=== PATIENT | female | born 1995 ===

== ENCOUNTER 2018-06-16 10:19 | Inpatient (IN) ==
[2018-06-16] MEDS ORDERED: ONDANSETRON 4 MG/2 ML VIAL IV PRN ×2 (10:43→21:37)
[2018-06-16] MEDS ORDERED: MEPERIDINE 50 MG/1 ML VIAL IV PRN (10:43)
[2018-06-16] MEDS ORDERED: LACTATED RINGERS 1,000 ML IV SCH ×2 (11:00→13:30)
[2018-06-16] MEDS ORDERED: OXYTOCIN/LR 20 UNIT/1,000 ML BAG IV SCH (11:00)
[2018-06-16 11:08] LABS: Basophils % 0.3 % (0.0-0.8); Eosinophils # 0.1 10*3/uL (0.0-0.87); Eosinophils % 0.9 % (0.00-10.9); Hematocrit 34.3 VOL% (35.7-47.0); Hemoglobin 11.1 GM/DL (12.0-16.0); Immature Granulocytes % 0.9 %; Immature Granulocytes Absolute 0.07 #; Lymphocytes # 1.5 10*3/uL (1.4-4.0); Lymphocytes % 19.4 % (21.3-54.2); Mean Corpuscular HGB Conc 32.4 GM/DL (32-36); Mean Corpuscular Hemoglobin 27 PG (27-34); Mean Corpuscular Volume 83.1 FL (87-102); Mean Platelet Volume 10.8 FL (9.6-12.0); Monocytes # 0.6 10*3/uL (0.11-0.8); Monocytes % 7.7 % (1.7-12.7); Neutrophils # 5.5 10*3/uL (1.4-7.4); Neutrophils % 70.8 % (38.7-73.9); Platelet Count 193 T/CUMM (130-400); Red Blood Count 4.13 MC/CUMM (3.8-5.5); Red Cell Distribution Width 14.3 % (9.3-17.3); White Blood Count 7.7 T/CUMM (4-12)
[2018-06-16] MEDS ORDERED: FAMOTIDINE 20 MG/2 ML VIAL IV ONE (13:20)
[2018-06-16] MEDS ORDERED: CITRIC ACID/SODIUM CITRATE 30 ML UDCUP PO ONE (13:20)
[2018-06-16] MEDS ORDERED: ePHEDrine 50 MG/ML AMP IV PRN (13:20)
[2018-06-16] MEDS ORDERED: fentaNYL 2 MCG/ROPIV 0.2% EPID 150 ML EPIDURAL SCH (13:30)
[2018-06-16] MEDS ORDERED: fentaNYL 2 MCG/ROPIV 0.2% EPID 150 ML EPIDURAL ONE (13:36)
[2018-06-16 16:13] LABS: Apearance,Urine CLEAR (Clear); Bacteria,Urine Occasional /HPF (Few); Bilirubin,Urine Negative (Negative); Blood, Urine Negative (Negative); Glucose,Urine (UA) Negative (Negative); Ketones,Urine Negative (Negative); Mucus,Urine Occasional /LPF (Occasional); Nitrite,Urine Negative (Negative); Protein,Urine Negative; Squamous Epithelial Cell,Urine Occasional /HPF (0-10); Urine Color Yellow (Yellow); Urine Specific Gravity 1.011 (1.001-1.035); Urine Urobilinogen < 2.0 EU/DL (0.2-1.0); WBC,Urine 1 /HPF (0-6)
[2018-06-16] MEDS ORDERED: BENZOCAINE 20%/MENTHOL 0.5% SPRAY 56 GM CAN TOP PRN (21:37)
[2018-06-16] MEDS ORDERED: BISACODYL 10 MG SUPP RECTAL PRN (21:37)
[2018-06-16] MEDS ORDERED: MEASLES/MUMPS/RUBELLA VACCINE 0.5 ML VIAL SUBCUT ONE (21:37)
[2018-06-16] MEDS ORDERED: LANOLIN 50% CREAM 0.3 OZ TUBE TOP PRN (21:37)
[2018-06-16] MEDS ORDERED: ACETAMINOPHEN 325 MG TABLET PO PRN (21:37)
[2018-06-16] MEDS ORDERED: RHO(D) IMMUNE GLOBULIN 300 MCG SYRINGE IM ONE (21:37)
[2018-06-16] MEDS ORDERED: WITCH HAZEL PADS 100/JAR TOP PRN (21:37)
[2018-06-16] MEDS ORDERED: HYDROCORTISONE 2.5% RECTAL CREAM 30 GM TUBE TOP PRN (21:37)
[2018-06-16] MEDS ORDERED: DIPH/TET/ACEL PERT BOOSTER VACCINE 0.5 ML VIAL IM ONE (21:37)
[2018-06-16] MEDS ORDERED: OXYTOCIN/LR 20 UNIT/1,000 ML BAG IV ONE (21:37)
[2018-06-16] MEDS: oxyCODONE/ACETAMINOPHEN 5-325 MG TABLET PO PRN (23:30)
[2018-06-16] MEDS: IBUPROFEN 800 MG TABLET PO PRN (23:30)
[2018-06-17 05:12] LABS: Basophils % 0.2 % (0.0-0.8); Eosinophils % 0.2 % (0.00-10.9); Hematocrit 30.3 VOL% (35.7-47.0); Hemoglobin 9.9 GM/DL (12.0-16.0); Immature Granulocytes % 0.5 %; Immature Granulocytes Absolute 0.06 #; Lymphocytes # 1.4 10*3/uL (1.4-4.0); Lymphocytes % 11.5 % (21.3-54.2); Mean Corpuscular HGB Conc 32.7 GM/DL (32-36); Mean Corpuscular Hemoglobin 26 PG (27-34); Mean Corpuscular Volume 80.6 FL (87-102); Mean Platelet Volume 11.2 FL (9.6-12.0); Monocytes # 0.6 10*3/uL (0.11-0.8); Monocytes % 4.6 % (1.7-12.7); Neutrophils # 9.9 10*3/uL (1.4-7.4); Platelet Count 179 T/CUMM (130-400); Red Blood Count 3.76 MC/CUMM (3.8-5.5); Red Cell Distribution Width 14.4 % (9.3-17.3); White Blood Count 11.9 T/CUMM (4-12)
[2018-06-17] MEDS: DOCUSATE SODIUM 100 MG CAPSULE PO SCH ×2 (08:40→20:55)
[2018-06-17] MEDS: oxyCODONE/ACETAMINOPHEN 5-325 MG TABLET PO PRN ×2 (08:41→15:30)
[2018-06-17] MEDS: IBUPROFEN 800 MG TABLET PO PRN (20:55)
[2018-06-18] MEDS: oxyCODONE/ACETAMINOPHEN 5-325 MG TABLET PO PRN (03:41)
[2018-06-18 07:57] VITALS: BP 129/66
[2018-06-18] MEDS: DOCUSATE SODIUM 100 MG CAPSULE PO SCH (08:51)
[2018-06-18] MEDS: IBUPROFEN 800 MG TABLET PO PRN (09:43)
== END 2018-06-18 13:40 | disposition home or self-care (01) | DRG 775 ==
LOC: N.LDOUT 10:19 → N.LD 10:23 → N.OB 06-17 00:30
PROVIDERS: ADMIT Obstetrics & Gynecology; ATTEND Obstetrics & Gynecology